=== PATIENT | male | born 1970 | race Caucasian/White ===

== ENCOUNTER → 2021-05-20 02:03 | Outpatient (CLI) | payer BC, SELFPAY ==
[2021-05-20 11:52] LABS: SARS-CoV-2 RNA PCR Negative
== END ==
PROVIDERS: PCP Family Medicine; Visit Provider Internal Medicine Gastroenterology
DX: Z01.812 Encounter for preprocedural laboratory examination (principal); Z20.822 Contact with and (suspected) exposure to COVID-19
CPT/HCPCS: C9803; U0003; U0005

== ENCOUNTER 2021-05-23 00:17 | Day surgery (SDC) | payer BC, SELFPAY ==
[2021-05-13 10:40] VITALS: BMI 33.2
--- NOTE | 2021-05-22 13:25 | WPDANESEPP ---
Anes - Eval Pre Procedure Procedure: Operation Date: 05/23/21 08:00 Proposed Procedures p Screening Colonoscopy - Alonso Matson MD Date/Time: 05/22/21 13:25 Pre Op Diagnosis: neoplasm screening Patient Data Age: 50 Gender: M Height: 1.75 m Weight: 102 kg Allergies Allergy/AdvReac Type Severity Reaction Status Date / Time No Known Allergies Allergy Verified 05/13/21 10:38 Home Medications Medication Instructions Recorded Confirmed Type blood sugar diagnostic See Rx Instructions .ROUTE 10/07/20 Rx .COMPLEX #50 strip metformin 500 mg tablet,extended 2,000 mg PO QPM #360 tablet 12/20/20 05/13/21 Rx release 24 hr atorvastatin 10 mg tablet 10 mg PO DAILY #90 tablet 03/17/21 05/13/21 Rx lisinopril 20 1 tablet PO DAILY #90 tablet 04/10/21 05/13/21 Rx mg-hydrochlorothiazide 12.5 mg tablet sitagliptin 50 mg tablet 50 mg PO DAILY #90 tablet 04/10/21 05/13/21 Rx aspirin [Adult Low Dose Aspirin] 81 mg PO DAILY 05/13/21 05/13/21 History valacyclovir 1,000 mg PO DAILY PRN 05/13/21 05/13/21 History Patient hx anesthesia problems: none Family hx anesthesia problems: none Results Review: All pre-operative results and documents have been reviewed as part of the pre-operative evaluation. [facility] Past Medical History Medical History Essential (primary) hypertension High cholesterol Type 2 diabetes mellitus without complications Surgical History Surgical History History of mandibular surgery 1986 Family History Family History Father Cerebrovascular accident Mother Diabetes mellitus Breast cancer Other Heart disease Cancer Social History Social History Social History: Smoking status: Never smoker Second hand tobacco smoke exposure: No Smoking end date: 03/22/09 Alcohol intake: current Drinks per week: 3 Alcohol use details: social Substance use: never Substance use type: does not use Gender identity (if verbalized by the patient): Male Spiritual care concerns: No Exam Day of Procedure 05/22/21 13:25
--- NOTE | 2021-05-22 15:11 | PM.HPGS ---
History of Present Illness History of Present Illness Consent: Risks, benefits, and alternatives have been discussed and questions answered. Patient agrees to proceed with procedure. Chief complaint: neoplasm screening Narrative: Jonathon Keller II is a 50 year old male referred for colon cancer screening. Review of Systems Review of Systems: All systems reviewed & are unremarkable except as noted in HPI and below PMFSH Past Medical History Medical History Essential (primary) hypertension High cholesterol Type 2 diabetes mellitus without complications Surgical History Surgical History History of mandibular surgery 1986 Family History Family History Father Cerebrovascular accident Mother Diabetes mellitus Breast cancer Other Heart disease Cancer Social History Social History Social History: Smoking status: Never smoker Second hand tobacco smoke exposure: No Smoking end date: 03/22/09 Alcohol intake: current Drinks per week: 3 Alcohol use details: social Substance use: never Substance use type: does not use Living arrangements: with family Gender identity (if verbalized by the patient): Male Spiritual care concerns: No Meds Home Medications and Allergies Home Medications Medication Instructions Recorded Confirmed Type blood sugar diagnostic See Rx Instructions .ROUTE 10/07/20 05/23/21 Rx .COMPLEX #50 strip metformin 500 mg tablet,extended 2,000 mg PO QPM #360 tablet 12/20/20 05/23/21 Rx release 24 hr atorvastatin 10 mg tablet 10 mg PO DAILY #90 tablet 03/17/21 05/23/21 Rx lisinopril 20 1 tablet PO DAILY #90 tablet 04/10/21 05/23/21 Rx mg-hydrochlorothiazide 12.5 mg tablet sitagliptin 50 mg tablet 50 mg PO DAILY #90 tablet 04/10/21 05/23/21 Rx aspirin [Adult Low Dose Aspirin] 81 mg PO DAILY 05/13/21 05/23/21 History valacyclovir 1,000 mg PO DAILY PRN 05/13/21 05/23/21 History Allergies Allergy/AdvReac Type Severity Reaction Status Date / Time No Known Allergies Allergy Verified 05/23/21 06:46 Exam Const: General: alert Orientation/consciousness: patient oriented x3 Resp: Auscultation: clear to auscultation bilaterally Cardio: Rhythm: regular rhythm GI: GI Palp: Yes Soft to palpation and No Tenderness to palpation present (GI) Neuro: General: patient oriented x3 Assessment and Plan Assessment and plan (1) Colon cancer screening: Code(s): Z12.11 - Encounter for screening for malignant neoplasm of colon Status: Acute Assessment and Plan: Colonoscopy with possible biopsy or polypectomy or cautery or injection of substances.
[2021-05-23 06:48] VITALS: BP 123/77; PULSE 58; RESP 16; TEMP 36.2; O2SAT 96
[2021-05-23] MEDS: LACTATED RINGERS 1,000 ML 150 ML IV CONT (07:00)
[2021-05-23 07:04] LABS: Glucose Point of Care 161 mg/dl (65-105)
--- NOTE | 2021-05-23 07:07 | WPDANESEFPP ---
Anes - Eval Final PreProcedure Day of Procedure 05/23/21 07:07 Patient weight: obese Heart: regular rate and rhythm Lungs: clear to auscultation Airway: Mallampati scale class II Neurological: alert and oriented Last oral intake: >/= 8 hours ASA classification: III Emergent: no Anesthetic plan: proceed Anesthesia type and monitoring: general GIVS and standard monitoring Results Review: All pre-operative results and documents have been reviewed as part of the pre-operative evaluation. Informed Consent: The patient's anesthetic plan and its attendant risks and benefits were discussed with the patient/family/POA. Questions were solicited and answers provided to the satisfaction of the patient/family/POA.
[2021-05-23 08:12] VITALS: BP 103/63; PULSE 54; RESP 21; O2SAT 95
[2021-05-23 08:22] VITALS: BP 129/77; PULSE 53; RESP 19; O2SAT 99
[2021-05-23 08:32] VITALS: BP 115/86; PULSE 55; RESP 21; O2SAT 99
== END 2021-05-23 08:45 | disposition home or self-care (01) ==
PROVIDERS: PCP Family Medicine; Visit Provider Internal Medicine Gastroenterology
PROC: 0DJD8ZZ Inspection of Lower Intestinal Tract, Via Natural or Artificial Opening Endoscopic (ICD-10-PCS; CPT 45378; principal; 2021-05-23 08:00)
DX: Z12.11 Encounter for screening for malignant neoplasm of colon (principal); K62.1 Rectal polyp; K57.30 Diverticulosis of large intestine without perforation or abscess without bleeding; I10 Essential (primary) hypertension; E11.9 Type 2 diabetes mellitus without complications; E78.00 Pure hypercholesterolemia, unspecified; Z79.84 Long term (current) use of oral hypoglycemic drugs
CPT/HCPCS: 45380; 82948; 88305; J2704; J7120

== ENCOUNTER 2021-08-04 13:41 | Emergency (ER) | payer BC, SELFPAY ==
--- NOTE | 2021-08-04 13:49 | PC.NURSE ---
PT STATES HIS DOCTOR'S OFFICE CALLED AND WILL SEE HIM THERE. HE DECLINES TO STAY IN THE ED. PT AMBULATORY WITH STE[facility]Y GAIT.
== END 2021-08-05 03:10 | disposition left against medical advice (07) ==
LOC: ANHED 13:56
PROVIDERS: PCP Family Medicine
DX: Z53.21 Procedure and treatment not carried out due to patient leaving prior to being seen by health care provider (principal)
CPT/HCPCS: 99199

== ENCOUNTER → 2021-09-08 14:50 | Outpatient (CLI) | payer BC, SELFPAY ==
--- NOTE | ~2021-09-08 | XR_ITS ---
XR lumbar spine 2-3V DATE: 09/08/2021 15:36 INDICATION: Low back pain TECHNIQUE: AP, lateral, coned lateral lumbosacral views COMPARISON: None FINDINGS: Normal alignment of the lumbar spine. No fracture or bone destruction or spondylolisthesis. The lumbar pedicles are intact. There is severe degenerative disc disease at L5-S1 and mild degenerative disc disease at L2-3 through L4-5. The sacroiliac joints are intact. IMPRESSION: Severe degenerative disc disease at L5-S1, mild degenerative disc disease at L2-3 through L4-5 Reviewed, dictated and finalized at location A. IMPRESSION: Severe degenerative disc disease at L5-S1, mild degenerative disc d isease at L2-3 through L4-5
== END ==
PROVIDERS: PCP Family Medicine; Visit Provider Family Medicine
DX: M51.37 Other intervertebral disc degeneration, lumbosacral region (principal)
CPT/HCPCS: 72100

== ENCOUNTER 2022-02-23 14:39 | Outpatient (CLI) | payer BC, SELFPAY ==
[2022-02-23 15:50] LABS: Influenza A QL RT-PCR Negative (Negative); Influenza B QL RT-PCR Negative (Negative); SARS-CoV-2 RNA PCR Negative
== END 2022-02-23 14:40 | disposition home or self-care (01) ==
LOC: ANHLAB 14:41
PROVIDERS: PCP Family Medicine; Visit Provider Physician Assistant
DX: R50.9 Fever, unspecified (principal); J02.9 Acute pharyngitis, unspecified; Z20.822 Contact with and (suspected) exposure to COVID-19
CPT/HCPCS: 87636

== ENCOUNTER 2023-05-13 10:01 | Outpatient (CLI) | payer BC, SELFPAY ==
[2023-05-13 11:41] LABS: Influenza A QL RT-PCR Positive (Negative); Influenza B QL RT-PCR Negative (Negative); RSV RNA, RT-PCR Negative (Negative); SARS-CoV-2 RNA PCR Negative (Negative)
== END 2023-05-13 10:02 | disposition home or self-care (01) ==
LOC: ANHLAB 10:02
PROVIDERS: PCP Family Medicine; Visit Provider Physician Assistant
DX: R50.9 Fever, unspecified (principal); Z20.822 Contact with and (suspected) exposure to COVID-19
CPT/HCPCS: 87637

== ENCOUNTER 2023-06-02 13:52 | Outpatient (CLI) | payer BC, SELFPAY ==
--- NOTE | ~2023-06-02 | XR_ITS ---
EXAMINATION: XR chest 2V DATE: 06/02/2023 14:04 INDICATION: One month of cough TECHNIQUE: PA and lateral views of the chest were obtained. COMPARISON: Chest radiograph dated 06/10/2022 FINDINGS: The lungs remain clear with no focal airspace opacities, pulmonary edema, pleural effusion or pneumot horax. The cardiomediastinal silhouette is normal. Mild thoracic spondylosis. IMPRESSION: 1. No acute cardiopulmonary disease. Reviewed, dictated and finalized at location B.
== END 2023-06-02 13:53 | disposition home or self-care (01) ==
LOC: ANHIMG 13:54
PROVIDERS: PCP Family Medicine; Visit Provider Physician Assistant
DX: R05.9 Cough, unspecified (principal)
CPT/HCPCS: 71046

== ENCOUNTER 2023-09-11 15:27 | Emergency (ER) | payer BC, SELFPAY ==
--- NOTE | 2023-09-11 15:37 | ED.GENADULT ---
HPI - General Adult General Chief complaint: Upper Respiratory Infection Stated complaint: sore throat Time Seen by Provider: 09/11/23 15:51 Source: patient Mode of arrival: ambulatory Limitations: no limitations History of Present Illness HPI narrative: 53-year-old male patient presents to the [facility] complaints of postnasal drip and sore throat for the past 4 days. Patient states he attempted to call his primary doctor this week but they never called him back. Patient states that Wednesday when he went to work he just all the sudden got a bunch of drainage to the back of the throat and coming up the nose. Denies any fevers, body aches or chills. Denies any coughing or shortness of breath. Denies any ear pain. Patient states he does have a sore throat. Denies any nausea, vomiting or diarrhea. Related Data Home Medications Medication Instructions Recorded Confirmed aspirin 81 mg tablet 81 mg PO DAILY 05/13/21 08/12/23 valacyclovir 1 gram tablet 1,000 mg PO DAILY Cold Sores 09/11/23 Allergies Allergy/AdvReac Type Severity Reaction Status Date / Time No Known Allergies Allergy Verified 09/11/23 15:40 Review of Systems Review of Systems: CONSTITUTIONAL: Denies fever, chills, or sweats. EYES: Denies visual changes, redness, or discharge. ENT: Positive rhinorrhea, congestion, sore throat, denies otalgia. CARDIOVASCULAR: Denies chest pain, palpitations, or edema. RESPIRATORY: positive mild nonproductive cough , denies dyspnea. GASTROINTESTINAL: Denies abdominal pain, nausea, vomiting, or diarrhea. GENITOURINARY: Denies dysuria or hematuria. SKIN: Denies rash or itching. MUSCULOSKELETAL: Denies back pain, joint pain, or myalgia. NEUROLOGIC: Denies headache, numbness, or weakness. PSYCHIATRIC: Denies anxiety or depression. [facility] Past Medical History Medical History Essential (primary) hypertension High cholesterol Obesity Type 2 diabetes mellitus without complications Surgical History Surgical History History of mandibular surgery 1986 Family History Family History Father Cerebrovascular accident Mother Diabetes mellitus Breast cancer Other Heart disease Cancer Social History Social History Social History: Smoking status: Former smoker Second hand tobacco smoke exposure: No Smoking end date: 03/22/09 Alcohol intake: current Drinks per week: 3 Alcohol use details: social Substance use: never Substance use type: does not use Living arrangements: with family Occupation/Education: occupation Gender identity (if verbalized by the patient): Male Spiritual care concerns: No Comments At the time of my signature I agree with nursing past medical history, surgical, social, and family history. There is no relevant family history pertinent to the presenting complaint. Exam Narrative: GENERAL: Well-appearing, well-nourished, and in no acute distress. HEAD: Normocephalic, atraumatic. EYES: PERRLA and EOMI. ENT: Nares With erythema edema noted bilateral, clear/yellow rhinorrhea , no epistaxis. Mucous membranes moist. posterior pharynx with postnasal drip present no tonsillar enlargement, no exudates or lesions present. No erythema present. NECK: Supple. No lymphadenopathy CHEST: Clear to auscultation. No respiratory distress. HEART: Regular rate and rhythm. No murmur heard. Normal peripheral pulses. ABDOMEN: Soft, nontender, nondistended, normal active bowel sounds. EXTREMITIES: Normal range of motion. No edema. SKIN: Warm, dry, no rash. NEURO: No focal deficits. Alert and oriented x3. Course Course Level of Care: Express Care Visit Vital Signs Vital signs: Vital Signs Temperature 36.2 C L 09/11/23 15:41 Pulse Rate 58 L
[2023-09-11 15:41] VITALS: BP 134/76; PULSE 58; RESP 18; TEMP 36.2; O2SAT 97
== END 2023-09-11 16:09 | disposition home or self-care (01) ==
PROVIDERS: Emergency Provider Nurse Practitioner Family; PCP Family Medicine
DX: J01.90 Acute sinusitis, unspecified (principal); J02.9 Acute pharyngitis, unspecified; J30.9 Allergic rhinitis, unspecified; R09.82 Postnasal drip; Z87.891 Personal history of nicotine dependence; I10 Essential (primary) hypertension; E78.00 Pure hypercholesterolemia, unspecified; E11.9 Type 2 diabetes mellitus without complications; E66.9 Obesity, unspecified; Z68.31 Body mass index [BMI] 31.0-31.9, adult; Z79.82 Long term (current) use of aspirin
CPT/HCPCS: 87081; 87880; 99213; G0463

== ENCOUNTER 2024-02-07 11:03 | Outpatient (CLI) | payer BC, SELFPAY ==
--- NOTE | ~2024-02-07 | XR_ITS ---
XR shoulder RT min 2V Ordering provider: Mg Woody PA-C History: . M25.511 - Pain in right shoulder . Comparison: None. FINDINGS: BONES: No acute fracture or dislocation. JOINT SPACES: The acromioclavicular joint shows mild to moderate osteoarthritic changes The glenohume ral joint is normal. SOFT TISSUES: Normal. IMPRESSION: No acute osseous abnormality right shoulder. Reviewed, dictated and finalized at location A. [employer]
--- NOTE | ~2024-02-07 | XR_ITS ---
XR shoulder LT min 2V Ordering provider: Mg Woody PA-C History: . M25.512 - Pain in left shoulder, injury to left 2018 . Comparison: None. FINDINGS: BONES: No acute fracture or dislocation. JOINT SPACES: The acromioclavicular joint shows mild osteoarthritic changes.. The glenohumeral joint is normal. SOFT TISSUES: Normal. IMPRESSION: No acute osseous abnormality left shoulder. Reviewed, dictated and finalized at location A. [employer]
== END 2024-02-07 11:04 | disposition home or self-care (01) ==
LOC: ANHIMG 11:05
PROVIDERS: PCP Family Medicine; Visit Provider Physician Assistant
DX: M25.511 Pain in right shoulder (principal); M25.512 Pain in left shoulder
CPT/HCPCS: 73030

== ENCOUNTER 2024-06-23 09:35 | Emergency (ER) | payer BC, SELFPAY ==
--- NOTE | ~2024-06-23 | XR_ITS ---
EXAMINATION: XR chest 2V 06/23/2024 10:01 INDICATION: Cough PROCEDURE: 2 view chest COMPARISON: Comparison to multiple prior studies sequentially, with oldest reviewed study dated 02/19. FINDINGS: The lungs are clear. The cardiomediastinal silhouette is within normal limits. There are no pleural effusions. There is no pneumothorax suspected. IMPRESSION: 1: NO ACUTE CARDIOPULMONARY DISEASE. Reviewed, dictated and finalized at location A.
--- NOTE | 2024-06-23 09:36 | ED.URI ---
HPI - URI/Sore Throat General Chief Complaint: Upper Respiratory Infection Stated Complaint: upper respiratory Time Seen by Provider: 06/23/24 09:35 Source: patient Mode of arrival: ambulatory Limitations: no limitations History of Present Illness HPI Narrative: Jonathon is a 53-year-old male patient presenting to the clinic today with complaints of cough, chest congestion, and nasal congestion x 5 days. He reports no known fever or chills. Denies any chest pain or shortness of breath. He is a former smoker. States he is coughing up some yellowish/green phlegm. Related Data Home Medications ?Medication ?Instructions ?Recorded ?Confirmed ?Last Taken ?Type aspirin 81 mg tablet 81 mg PO DAILY 05/13/21 04/18/24 05/22/21 10:00 History valacyclovir 1 gram tablet 1,000 mg PO DAILY Cold Sores 09/11/23 04/18/24 Unknown History Allergies Allergy/AdvReac Type Severity Reaction Status Date / Time No Known Allergies Allergy Verified 06/23/24 09:36 Review of Systems Review of Systems: Pertinent positives per HPI. Patient denies any fever, chills, rash, headache, visual changes, dizziness, shortness of breath, chest pain, palpitations, nausea, vomiting, diarrhea, constipation, abdominal pain, or any urinary issues. [facility] Past Medical History Medical History Obesity High cholesterol Essential (primary) hypertension Type 2 diabetes mellitus without complications Surgical History Surgical History History of mandibular surgery 1986 Family History Family History Father Cerebrovascular accident Mother Diabetes mellitus Breast cancer Other Heart disease Cancer Social History Social History Social History: Smoking status: Former smoker Second hand tobacco smoke exposure: No Smoking end date: 03/22/09 Alcohol intake: current Drinks per week: 3 Alcohol use details: social Substance use: never Substance use type: does not use Living arrangements: with family Occupation/Education: occupation Gender identity (if verbalized by the patient): Male Spiritual care concerns: No Comments At the time of my signature, I reviewed and agree with the nursing past medical, surgical, social, and family history. There is no relevant family history pertinent to the patient complaint. Exam Narrative: General: Well-developed, well nourished, in no apparent distress Head: Normocephalic, atraumatic Eyes: Pupils equally round and reactive to light bilaterally, EOM intact, sclera and conjunctive clear, no discharge, lids normal Ears: TMs intact and clear, ear canals clear, no drainage, grossly hearing normal. Nose: Nares patent, no discharge, no inflammation, no sinus tenderness. Mouth: Oral pharynx without lesions or masses, good dentition, MMM. Neck: Supple, trachea midline, no enlargement of anterior or posterior cervical nodes, no thyroid masses or goiter palpable. Cardio: Regular rate and rhythm, s1 and s2 normal, no murmur appreciated. Resp: Crackles in the right lower lobe, no rhonchi, wheezing or rubs Course Course Emergency Course: Portions of this record may have been created with voice recognition software. Level of Care: Express Care Visit Vital Signs Vital signs: Vital Signs Temperature 36.0 C L 06/23/24 09:47 Pulse Rate 57 L 06/23/24 09:47 Respiratory Rate 18 06/23/24 09:47 Blood Pressure 131/86 06/23/24 09:47 Pulse Oximetry 100 06/23/24 09:47 Oxygen Delivery Room Air 06/23/24 09:47 Temperature 36.0 C L 06/23/24 09:47 Pulse Rate 57 L 06/23/24 09:47 Respiratory Rate 18 06/23/24 09:47 Blood Pressure 131/86 06/23/24 09:47 Pulse Oximetry 100 06/23/24 09:47 Oxygen Delivery Room Air 06/23/24 09:47 Vital signs reviewed MDM - URI/Sore Throat MDM Narrative Medical decision making narrative: At the time of visit patient is resting comfortably on the exam table. Patient appears to be nontoxic. Diagnostics: Chest x-ray was performed and was negative for any sign of pneumonia. Plan: I suspect patient has URI with cough and congestion/bronchitis. Prescription for prednisone was sent to the pharmacy. Supportive measures were discussed with the patient and they voiced understanding discharge instructions and agrees to treatment plan. Return precautions reviewed Differential Diagnosis Differential diagnosis: Likely upper respiratory infection, otitis media, sinusitis, viral infection, bronchitis, influenza, pharyngitis and other (COVID) Discharge Plan Discharge Clinical Impression: Upper respiratory infection with cough and congestion, Bronchitis Patient Disposition: Home, Self-Care Condition: Stable Instructions: Antibiotic Form, Upper Respiratory Infection (ED) Additional Instructions: Chest x-rays negative for any acute cardiopulmonary process. Take prescription medications only as prescribed-albuterol inhaler and prednisone Increase fluids and stay well hydrated Tylenol/motrin for pain/fever Flonase and OTC antihistamines as directed Vicks vapor rub to open sinuses Sinus rinses for congestion Cepacol spray, cough drops, throat lozenges, warm tea with honey/lemon, gargle salt water to soothe throat BRAT diet for diarrhea Clear liquids x 24 hours then advance as tolerated for nausea/vomiting Go to the ED if you develop a worsening in your condition- high fever not controlled by Tylenol or Motrin, dehydration, weakness, lethargy, shortness of breath, or chest pain. Follow up with your PCP in 3-5 days if symptoms persist. Patient Language: Urdu Prescriptions: New albuterol sulfate 90 mcg/actuation HFA aerosol inhaler 2 puff inhalation Q4-6H PRN (Reason: shortness of breath or wheezing) 30 Days Qty: 8.5 0RF prednisone 20 mg tablet 40 mg PO DAILY 5 Days Qty: 10 0RF No Action valacyclovir 1 gram tablet 1,000 mg PO DAILY Rx Instructions: Take 2 tabs po q12 hrs x 1 day at onset of cold sore. sitagliptin phosphate 100 mg tablet 100 mg PO DAILY Qty: 90 2RF lorazepam 0.5 mg tablet 0.5 mg PO DAILY PRN (Reason: claustrophobia) Qty: 2 0RF Rx Instructions: Take 1 tablet by mouth 30-60 minutes prior to image study. May repeat dosage after 30-60 minutes from previous dose if needed aspirin 81 mg Tablet 81 mg PO DAILY Accu-Chek Stephanie Plus test strp Strip See Rx Instructions .ROUTE .COMPLEX Qty: 50 4RF Dose Instruction: TEST EVERY MORNING FASTING Rx Instructions: TEST EVERY MORNING FASTING lisinopril-hydrochlorothiazide 20-12.5 mg tablet 1 tablet PO DAILY Qty: 90 3RF metformin 500 mg tablet extended release 24 hr See Rx Instructions .ROUTE .COMPLEX Qty: 360 3RF Dose Instruction: TAKE 4 TABLETS BY MOUTH EVERY EVENING Rx Instructions: TAKE 4 TABLETS BY MOUTH EVERY EVENING atorvastatin [Lipitor] 10 mg tablet 10 mg PO DAILY Qty: 90 2RF Follow-up/Referrals: Darwin Zafar MD [Primary Care Provider] - Time of Disposition: 10:17 Quality NIHSS Nursing Documentation ED NIHSS nursing documentation: reviewed/agree
--- OUTSIDE RECORDS SUMMARY | 2024-06-23 09:45 | XMS_ITS | Clinical Summary ---
Author Organization [facility] Address [address] [place] [address] Care Team Providers Care Payroll And Benefits Analyst Name Role Phone Darwin Zafar MD Primary Care Provider [phone] Source Comments [facility],non-owned Affiliates and Associated Physician Practices is amultiple site organization consisting of ambulatory clinics and hospital sitesin [place], [place], [place] and [place]. This disclosure is being madepursuant to the Care Everywhere program and may not contain all information available regarding this patient. Last updated 17.[facility] Allergies No known active allergies Medications * Be aware that medications may not be up to date on this document. Alwaysverify current medications with the patient. Medication Sig Dispensed Refills Start Date End Date Status ATORVASTATIN CALCIUM PO A ctive METFORMIN HCL PO Active LISINOPRIL PO Active valACYclovir HCl (VALTREX PO) Active azithromycin (ZITHROMAX) 250 MG tabletIndications:Acute sinusitis, recurrence not specified, unspecified location Take 2 tabs today, then 1 tab daily for next 4 days 6 tablet 08/07/2020 Active Active Problems No known active problems Social History Tobacco Use Types Packs/Day Years Used Date Smoking Tobacco: Former Cigarettes Q uit: 1997 Smokeless Tobacco: Never Sex and Gender Information Value Date Recorded Sex Assigned at Not on file Gender Identity Not on file Sexual Orientation Not on file Last Filed Vital Signs Vital Sign Reading Time Taken Comments Blood Pressure 132/92 03/19/2021 11:42 AM SECURITY ORDERLY Pulse 73 03/19/2021 11:42 AM SECURITY ORDERLY Temperature 36.9 C (98.4 F) 03/19/2021 11:42 AM SECURITY ORDERLY Respiratory Rate 16 03/19/2021 11:42 AM SECURITY ORDERLY Oxygen Saturation 98% 03/19/2021 11:42 AM SECURITY ORDERLY Inhaled Oxygen Concentration - - Weight 102.1 kg (225 lb) 03/19/2021 11:42 AM SECURITY ORDERLY Height 175.3 cm (5' 9 ) 03/19/2021 11:42 AM SECURITY ORDERLY Body Mass Index 33.23 03/19/2021 11:42 AM SECURITY ORDERLY Plan of Treatment Health Maintenance Due Date Last Done Comments COLOGUARD (AGES 45-75) - COL ON CA SCREENING 1969 COLON MONITORING 1969 COLONOSCOPY - COLON CA SCREENING 1969 CT COLONOGRAPHY - COLON CA SCREENING 1969 Colorectal Cancer Screening 1969 FIT - COLON CA SCREENING 1969 FLEX SIG - COLON CA SCREENING 1969 HIV SCREENING 1984 HEPATITIS C SCREENING 07/21/1987 DTAP/TDAP/TD VACCINES (1 - Tdap) 1988 HEPATITIS B VACCINE (1 of 3 - 19+ 3-dose series) 1988 PNEUMOCOCCAL VACCINE 50+ (1 of 1 - PCV) 07/26/2019 ZOSTER VACCINE (1 of 2) 07/26/2019 SCREENING FOR DIABETES 08/07/2020 COVID-19 VACCINE (1 - 2023-2 5 season) 2023 INFLUENZA VACCINE (#1) 2023 DEPRESSION SCREENING 03/22/2024 HIB VACCINE Aged Out No longer eligi ble based on patient's age to complete this topic HPV VACCINE Aged Out No longer eligi ble based on patient's age to complete this topic MENINGOCOCCAL (Group B) VACC INE SHARED DECISION-MAKING Aged Out No longer eligibl e based on patient's age to complete this topic MENINGOCOCCAL GROUPS A/C/Y/W VACCINE Aged Out No longer eligible b ased on patient's age to complete this topic PNEUMOCOCCAL VACCINE Aged Out No long er eligible based on patient's age to complete this topic Care Teams Payroll And Benefits Analyst Relationship Specialty Start Date End Date Darwin Zafar MD [address] [place] [address] PCP - General 10/21/17
--- OUTSIDE RECORDS SUMMARY | 2024-06-23 09:45 | XMS_ITS | CONTINUITY OF CARE DOCUMENT ---
Author Name saad nash Address Unknown Organization [facility] Address [address] [place] [address] Phone [phone] Care Team Providers Care Cable Installer Repairer Helper Name Role Phone Laith Martínez MD Unavailable [phone] DAYSI REYNA MD Unavailable DAYSI REYNA MD Unavailable [phone] PROBLEMS Condition Status Date Provider Notes Chest pain active Mary Ann Espinosa FAMILY HISTORY OF HEART DISEASE active Laith Martínez MD Tobacco use quit active Laith Martínez MD Abnormal routine stress test active Laith tinajero MD Hypertension active Laith Martínez MD Dyslipidemia active Laith Martínez MD Palpitations active Laith Martínez MD Diabetes mellitus active Laith Martínez MD ENCOUNTERS Date Type Provider Location Encounter Diag nosis 04/20 - 04/20 In-person encounter Office Visit Laith Martínez MD [facility] FAMILY HISTORY OF HEART DISEASETobacco u se quitAbnormal routine stress testHypertensionDyslipidemiaPalpitationsDiabetes mellitus VITAL SIGNS Date Observation Value Provider Body Mass Index (Ratio) 33.08 kg/m2 Juan Miguel Negro blood pressure, diastolic 86 mm[Hg] Da pau Deyanira blood pressure, systolic 128 mm[Hg] Dac ia Deyanira oxygen saturation, oximetry 98 % Rekha Deyanira respiratory rate E&M 16 /min Rekha V oss pulse rate 56 /min Rekha Deyanira weight E&M 224 [lb_av] Rekha Deyanira height E&M 69 [in_i] Rekha Deyanira blood pressure, diastolic 80 mm[Hg] Be rolan Vannnard blood pressure, systolic 146 mm[Hg] Bet sy Espinosa ALLERGIES No Known Drug Allergies HISTORY OF MEDICATION USE Medication Status Instructions Dates Provider Indications Com ments VITAMIN C CAPSULE active take one daily [facility] TESTOSTERONE CYPIONATE 100 MG/ML INTRAMUSCULAR SOLUTION active take one daily Rekha Deyanira ASPIR-81 TABLET DELAYED RELEASE active take one daily Rekha Morton LISINOPRIL-HYDROCHL OROTHIAZIDE 10-12.5 MG ORAL TABLET active take one daily [facility] ATORVASTATIN CALCIUM 10 MG ORAL TABLET active take one daily [facility] MULTI-VITAMIN ORAL TABLET active take one daily [facility] LORATADINE 10 MG ORAL TABLET active take one daily [facility] L-LYSINE 1000 MG ORAL TABLET active take one daily Rekha Morton METFORMIN HCL 500 MG ORAL TABLET active take four times daily Rekha Morton SOCIAL HISTORY Date Observation Value Provider social history reviewed E&M reviewed - no changes required Laith Martínez MD social history E&M Smoking Histo ry: P jane is a former smoker. Laith Martínez MD exercise type Weightlifting an d high intensity training Laith Martínez MD smoking, year quit 2008 Laith ugalde MD cigarette use yes Laith Martínez MD smoking status Former smoker Laith Martínez MD smoking status Former smoker Mary Ann boucher FAMILY HISTORY Family Member Condition Uncle Family History of Fitch dden Cardiac : Father Family History of Co ronary Artery Disease: Father Family History of CV A or Stroke: Mother Family History of Di abetes: Mother Family History of CV A or Stroke: INSURANCE PROVIDERS Payer name Policy type / Coverage type [place] red libertarian ID [id number] 1 ADVANCE DIRECTIVES Name Date DISCUSSED - NO DECISION MADE TREATMENT PLAN Date Name Performer Cardiology [place]:Orders: E KG (CPT-27887) C omplete Echo (CPT-23195) S tress Exercise Cardiolite (CPT-25145) M obile Cardiac Tele (CPT-43936) [facility] Cardiology [place]:His updated medication list for this problem includes: Aspir-81 Tablet Delayed Release (Aspirin tbec) ..... Take one daily Lisinopril-hydrochlorothiazide 10-12.5 Mg Oral Tablet (Lisinopril-hydrochlorothiazide) ..... Take one daily Metformin Hcl 500 Mg Oral Tablet (Metformin hcl) ..... Take four times daily [facility] Cardiology [place]:His updated medication list for this problem includes: Atorvastatin Calcium 10 Mg Oral Tablet (Atorvastatin calcium) ..... Take one daily [facility] Cardiology [place]:BP today: 128/86 P rior BP: 146/80 (04/14/2018) His updated medication list for this problem includes: Lisinopril-hydrochlorothiazide 10-12.5 Mg Oral Tablet (Lisinopril-hydrochlorothiazide) ..... Take one daily [facility] Cardiology [place]:Orders: S tress Exercise Cardiolite (CPT-96076) [facility] Cardiology [place]:Orders: E KG (CPT-69976) C omplete Echo (CPT-12118) S tress Exercise Cardiolite (CPT-01205) [facility] Date Name Mobile Cardiac Tele Stress Exercise Card iolite Complete Echo HISTORY OF PROCEDURES Procedure Date Procedure Name Provider Procedure Notes S tatus Cardiolite, 2 units Laith Martínez MD c ompleted SPECT Images Maurice Flores MD com pleted Stress EKG Shimon Savage MD completed Event Monitor Laith Martínez MD complet ed EKG Laith Martínez MD completed Stress EKG Laith Martínez MD completed
[2024-06-23 09:47] VITALS: BP 131/86; PULSE 57; RESP 18; TEMP 36; O2SAT 100
--- OUTSIDE RECORDS SUMMARY | 2024-06-23 09:51 | XMS_ITS | Data Portability ---
Author Organization [facility] [employer], [facility] Address [address] [place] [address] Care Team Providers Care Data Conversion Developer Name Role Phone DAYSI REYNA Primary Care Provider Assessment Encounter Date Assessment Date Assessment LastModified by Organization Details LastModified Time 05/30/2021 05/30/2021 50 y/o with chronic venous insufficiency and CEAP grade 2 on the right and 2 on the left. VCSS score is 10. I am concerned that the symptoms may progress over time. Patients symptoms persist despite a trial of properly fitted gradient compression stockings for3 weeks. Venous ultrasound shows evidence of venous insufficiency bilaterally Given the symptoms, I recommend compression therapy . I will follow-up with him in 3 months to assess any improvement. Depending on his symptoms, venous closure may be needed. [email or web address] Not available 05/30/2021 14:35:56 09/05/2021 09/05/2021 51 y/o with chronic venous insufficiency and CEAP grade 3 on the right. VCSS score is 12. I am concerned that the symptoms may progress over time. Given the symptoms, I recommend venous closure or treatment The risks, benefits and alternatives were discussed with the patient. The patient states that they understand and wish to proceed. Treatment planning is underway. I spent a total of 60 minutes with the patient and the majority of the service (>50%) was spent in counseling the patient on treatment options. Treatment plan Right leg: GSV closure with Venaseal-[id number] Varithena of [id number] [email or web address] Not available 09/05/2021 15:32:56 Plan of Treatment Reminders Order Date Submit Date Provider Last Modified By Organization Details Last Modified Time Details Appointments None record ed. Lab None record ed. Referral None record ed. Procedures None record ed. Surgeries None record ed. Imaging None record ed. Medication Orders None record ed. Patient TargetsNo targets recorded. Patient InstructionsNo instructions recorded. Reason for Referral None Reported. Results Created Date Observation Date Name Description Value Unit Range Abnormal Flag Note LastModifiedBy Organization Detail LastModifiedTime 06/16/1905/30/2021 US, doppl er, venou s No observ ation record ed. [email or web address] Not Available 2021 17:01:13 Result Notes None recorded. Problems Name Problem SNOMED Code Status Onset Date Resolution Date Notes Provider Name and Address Organization Details Recorded Time Diabetes mellitus 65928724 Active 2021 [facility] 13:01:16 Hypertensive disorder 77639958 Active 2021 moy henriquez [employer] [facility] 13:01:27 Problem Notes None recorded. Procedures Surgical History Date Name Laterality Status Provider Name and Address Organization Details Recorded Time 05/31/19 OALEVenousUSreflux completed Kristin [facility] [employer] [facility] 05/30/2021 14:19:54 Imaging Results Imaging Date Name Status LastModified by Organiz ation Details LastModified Time 05/30/2021 US, doppler, venous completed [email or web address] Information not available 08/06/2021 17:01:13 Procedure Notes None recorded. Medical Equipment None Reported. Allergies No known drug allergies Medications Name Sig Start Date Stop Date Status Note LastModified by Organization Details LastModified Time atorvastatin 10 mg tablet TAKE 1 TABLET BY MOUTH DAILY active Not Available Not Available Not Available lisinopril 20 mg-hydrochlo rothiazide 12.5 mg tablet TAKE 1 TABLET BY MOUTH DAILY active Not Available Not Available Not Available valacyclovir 1 gram tablet TAKE 2 TABLETS EVERY 12 HOURS FOR 1 DAY AT ONSET OF COLD SORE active Not Available Not Available No t Available albuterol sulfate 1.25 mg/3 mL solution for nebulization Inhale 3 mL 3 times a day by inhalation route. active Not Available Not Available No t Available cephalexin 500 mg capsule TAKE ONE CAPSULE BY MOUTH EVERY 6 HOURS UNTIL ALL TAKEN active Not Available Not Available No t Available metformin ER 500 mg tablet,exten ded release 24 hr TAKE 4 TABLETS BY MOUTH EVERY EVENING active Not Available Not Available No t Available doxycycline hyclate 100 mg tablet TAKE 1 TABLET BY MOUTH TWICE DAILY FOR 10 DAYS active Not Available Not Available No t Available clindamycin phosphate 1 % topical solution APPLY 2 DROPS DAILY TO PROCEDURE SITE DIRECTED. active Not Available Not Available No t Available Januvia 50 mg tablet TAKE 1 TABLET BY MOUTH DAILY active Not Available Not Available Not Available Vitals Date Recorded Body height Provider Name an d Address Organization Details Last Updated DateTime 05/30/2021 175.26 cm moy montoya [place] - [employer] [facility] 05/30/2021 13:00:48 Date Recorded Body height Provider Name an d Address Organization Details Last Updated DateTime 05/30/2021 175.26 cm Kristin العلي [place] [employer] [facility] 05/30/2021 14:19:56 Date Recorded Body height Body mass index (BMI) Body weight Heart rate Systolic blood pressure Diastolic blood pressure Provider Name and Address Organization Details Last Updated DateTime 2 175.26 cm 33.2 kg/m2 766046. 28 g 68 /min 135 mm[Hg] 80 mm[Hg] [facility]USH[facility] [employer] [facility] 2 14:59:07 Social History Question Answer Notes LastModified by Organizat ion Details LastModified Time Tobacco Smoking Status Former Smoker moy montoya [facility], [place] - [facility] 05/30/2021 13:02:02 What Was The Date Of Your Most Recent Tobacco Screening? 09/05/2021 Information not available 09/05/2021 How Many Years Have You Smoked Tobacco? 15 [email or web address] Information not available 05/30/2021 Do You Or Have You Ever Used Any Other Forms Of Tobacco Or Nicotine? No Information not available 09/05/2021 Sex: Unknown Functional Status None recorded. Mental Status None recorded. Family History Nothing Reported. Medical History Condition Response Anxiety Disorder N Varicose Veins N Anticoagulation therapy N Diabetes Y Coronary Artery Disease N Bleeding Disorder N Hyperlipidemia N Cancer N Stroke N Asthma N COPD N Clotting Disorder N Pacemaker N Anemia N Neurologic Disorder N Hepatitis N Genitourinary Disease N Heart Disease N Ulcers N Gastrointestinal Disease N Pulmonary Embolism N Deep Vein Thrombosis N Hypertension Y Kidney Disease N Past Encounters Encounter ID Performer Location Encounter Start Date Encounter Closed Date Diagnosis/Indication Diagnosis SNOMED-CT Code Diagnosis ICD10 Code Diagnosis Note [id number] Bo Tobin MD [facility] [place] ) [address] [place] [address] 05/30/2021 11:50:54 06/03/2021 10:44:02 Varicose veins of lower extremity 19676153 I83.893 Primary ve nous insufficiency of leg 211973741 I87.2 [id number] Kristin VIDESOUN D [place] [address] [facility] [place] [address] 05/30/2021 14:19:40 07/22/2021 11:07:44 Primary venous insufficiency of leg 837814841 I87.2 [id number] Bo Tobin MD [facility] ) [address] [facility] [place] [address] 09/05/2021 14:09:51 09/05/2021 15:38:20 Varicose veins of lower extremity 88884218 I83.893 Health Concerns Section Related Observation LastModified by Organization Detai ls LastModified Time None Recorded Concern Status LastModified by Organization Details LastModified Time None Recorded Advance Directives Directive None Recorded Payers Encounter Date Sequence Insurance Name Policy Number Policy Simms Covered Member ID Simms Member ID Guarantor Name 05/30/2021 1 BCBS-ID: [facility] [id number] [facility] [id number] [facility] 05/30/2021 1 BCBS-ID: [facility] [id number] [facility] [id number] [facility] 09/05/2021 1 BCBS-ID: [facility] [id number] [id number] [facility] Notes Date Note Type Note Provider Name and Address Organization Details Recorded Time text/html Varicose Vein or Venous insufficiencyReported bypatient.Location:[facility] (his right leg is worse than the left .) Quality:aching;burning;sta bbing;sharp;frequent Associated Symptoms:itching Severity:mild;pain level 4/10 Onset:6 months Context:compression stockings (for how long?) 3 weeks Alleviating Factors:compression; rest Aggravating Factors:prolonged standing Prior Imaging:noneNotes:He reports that he feels a crawling sensation in the right calf. He also reports that he has a throbbing sensation in the left calf. As related to {{his* her}} venous disease, patient reports {{burning aching swelling itching cramping achy, itching,cramping#}} {{and burning* and aching and swelling and itching and cramping}} {{during activity after prolonged standing during activity and prolonged standing*}}.Patient {{endorses* denies}} prior use of compression stockings.{{Patients symptoms persist despite a trial of properly fitted gradient compression stockings*}}for {{1 2 3* 4 5 6 7 8 9 10 11 12}} {{months weeks* years napoleon h week year}} {{Analgesic medication has been tried, but the symptoms persist and are lifestyle limiting*}}Patients work requires {{prolonged standing prolonged sitting constant activity*}} which has to be modified because of persistent {{pain swelling discomfort *}} while {{standing sitting in motion performing various work activities*}} [place] [address], [address], [facility] 05/30/2021 14:36:28 2 text/html Patient with a history of venous insufficiency, presenting for follow up after trial of compression therapy for {{1 2 3* 4 5 6 7 8 9 10 11 12}} {{weeks months* years}}.Kai brody still complains of {{burning aching swelling itching cramping burning, itching#}} {{and burning and aching* and swelling and itching and cramping}} {{during activity after prolonged standing during activity and prolonged standing*}}.{{Compression gave some relief, but patients symptoms still persist despite a trial of properly fitted gradient compression stockings*}}for{{1 2 3* 4 5 6 7 8 9 10 11 12}} {{months* weeks years}}{{P atient is unable to tolerate prolonged compression therapy*}}{{Patient has also tried mild exercise, avoidance of prolonged immobility and periodic elevation of legs*}} for{{1 2 3* 4 5 6 7 8 9 10 11}} {{month months* week weeks year years month months* week weeks year years}}. {{However, the symptoms still persist.*}} {{Analgesic medication has been tried, however the symptoms still persist and are lifestyle limiting*}} [place] [address] [facility], [address], [address], [facility] 09/05/2021 15:34:29
--- OUTSIDE RECORDS SUMMARY | 2024-06-23 09:51 | XMS_ITS | CONTINUITY OF CARE DOCUMENT ---
Author Name saad nash Address Unknown Organization [facility] Address [address] [place] [address] Phone [phone] Care Team Providers Care Patrol Man Name Role Phone Laith Martínez MD Unavailable [phone] DAYSI REYNA MD Unavailable DAYSI REYNA MD Unavailable PROBLEMS Condition Status Date Provider Notes Chest pain active Mary Ann Espinosa Diabetes mellitus active Laith Martínez MD Palpitations active Laith Martínez MD Dyslipidemia active Laith Martínez MD Hypertension active Laith Martínez MD Abnormal routine stress test active Laith tinajero MD Tobacco use quit active Laith Martínez MD FAMILY HISTORY OF HEART DISEASE active Laith Martínez MD ENCOUNTERS Date Type Provider Location Encounter Diag nosis 04/20 - 04/20 In-person encounter Office Visit Laith Martínez MD [facility] FAMILY HISTORY OF HEART DISEASETobacco u se [...] VITAMIN C CAPSULE active take one daily [facility] TESTOSTERONE CYPIONATE 100 MG/ML INTRAMUSCULAR SOLUTION active take one daily Rekha Deyanira ASPIR-81 TABLET DELAYED RELEASE active take one daily Rekha Macomb LISINOPRIL-HYDROCHL OROTHIAZIDE 10-12.5 MG ORAL TABLET active take one daily [facility] ATORVASTATIN CALCIUM 10 MG ORAL TABLET active take one daily [facility] MULTI-VITAMIN ORAL TABLET active take one daily [facility] LORATADINE 10 MG ORAL TABLET active take one daily [facility] L-LYSINE 1000 MG ORAL TABLET active take one daily Rekha Macomb METFORMIN HCL 500 MG ORAL TABLET active take four times daily Rekha Macomb SOCIAL HISTORY Date Observation Value Provider social [...] Payer name Policy type / Coverage type [place] red democrat ID [id number] 1 ADVANCE DIRECTIVES Name Date DISCUSSED - NO DECISION MADE TREATMENT PLAN Date Name Performer Cardiology [place]:Orders: E KG (CPT-67591) C omplete Echo (CPT-69970) S tress Exercise Cardiolite (CPT-21242) M obile Cardiac Tele (CPT-55923) [facility] Cardiology [place]:His updated medication list for this problem includes: Aspir-81 Tablet Delayed Release (Aspirin tbec) ..... Take one daily Lisinopril-hydrochlorothiazide 10-12.5 Mg Oral Tablet (Lisinopril-hydrochlorothiazide) ..... Take one daily Metformin Hcl 500 Mg Oral Tablet (Metformin hcl) ..... Take four times daily [facility] Cardiology [place]:His updated medication list for this problem includes: Atorvastatin Calcium 10 Mg Oral Tablet (Atorvastatin calcium) ..... Take one daily [facility] Cardiology [place]:BP today: 128/86 P rior BP: 146/80 (04/14/2018) His updated medication list for this problem includes: Lisinopril-hydrochlorothiazide 10-12.5 Mg Oral Tablet (Lisinopril-hydrochlorothiazide) ..... Take one daily [facility] Cardiology [place]:Orders: S tress Exercise Cardiolite (CPT-31912) [facility] Cardiology [place]:Orders: E KG (CPT-70159) C omplete Echo (CPT-17614) S tress Exercise Cardiolite (CPT-51585) [facility] Date Name Mobile Cardiac Tele Stress Exercise Card iolite Complete Echo HISTORY OF PROCEDURES Procedure Date Procedure Name Provider Procedure Notes S tatus Cardiolite, 2 units Liath Martínez MD c ompleted SPECT Images Maurice Flores MD com pleted Stress EKG Shimon Savage MD completed Event Monitor Laith Martínez MD complet ed EKG Laith Martínez MD completed Stress EKG Laith Martínez MD completed
== END 2024-06-23 10:18 | disposition home or self-care (01) ==
PROVIDERS: Emergency Provider Nurse Practitioner Family; PCP Family Medicine
DX: J06.9 Acute upper respiratory infection, unspecified (principal); R05.9 Cough, unspecified; J40 Bronchitis, not specified as acute or chronic; E78.00 Pure hypercholesterolemia, unspecified; I10 Essential (primary) hypertension; E11.9 Type 2 diabetes mellitus without complications; E66.9 Obesity, unspecified; Z68.32 Body mass index [BMI] 32.0-32.9, adult; Z79.82 Long term (current) use of aspirin; Z87.891 Personal history of nicotine dependence
CPT/HCPCS: 71046; 99213; G0463